=== PATIENT | male | born 1970 | race Caucasian/White ===

== ENCOUNTER 2021-03-12 05:46 | Day surgery (SDC) | payer OTHER ==
[2021-03-12] MEDS ORDERED: Nozin Nasal Sanitizer NASBOTH ONE (06:15)
[2021-03-12] MEDS ORDERED: Bupivacaine 0.5% 30 ML SDV ONE ×2 (06:51→07:16)
[2021-03-12] MEDS ORDERED: Lactated Ringers 1,000 ML IV SCH (07:00)
[2021-03-12] MEDS ORDERED: fentaNYL 100 MCG/2 ML SDV ONE ×2 (07:16→08:12)
[2021-03-12] MEDS ORDERED: Midazolam 1 MG/ML 2 ML SDV ONE (07:16)
[2021-03-12] MEDS ORDERED: Propofol 200 MG/20 ML SDV ONE ×3 (07:16→08:13)
[2021-03-12] MEDS ORDERED: Dexamethasone 4 MG/ML SDV ONE (07:17)
[2021-03-12] MEDS ORDERED: Ondansetron 4 MG/2 ML SDV ONE (07:17)
[2021-03-12] MEDS ORDERED: ceFAZolin 2 GM in Premix Bag 1 BAG IV ONE (07:30)
[2021-03-12] MEDS ORDERED: Lactated Ringers 1,000 ML ONE (09:23)
--- NOTE | 2021-03-31 04:32 | OR ---
DATE OF PROCEDURE: 03/12/2021 SURGEON: Naun Minor MD PREOPERATIVE DIAGNOSES: Recurrent anterior labral tear, possible superior labral tear. POSTOPERATIVE DIAGNOSES: 1. Recurrent anterior labral tear. 2. Posterior labral tear. 3. Synovitis. PROCEDURES: 1. Arthroscopy, left shoulder, with repair of anterior labrum. 2. Repair of posterior labrum. 3. Limited synovectomy. ANESTHESIA: Interscalene block with sedation. INDICATIONS: Irwin is a 51-year-old gentleman who sustained a work-related injury to his left shoulder resulting in large labral tear as well as traction injury with some nerve component. He underwent repair of anterior labrum and has undergone extensive therapy. He continues to have significant pain, disability, limited range of motion and strength. Followup MRI shows irregularity in 2 aspects of the labrum suggestive of incomplete healing of a previous repair versus new pathology. He now presents for arthroscopic evaluation and repair of labrum as necessary. Risks, benefits, potential complications of the procedure were discussed. DESCRIPTION OF PROCEDURE: After adequate anesthesia was obtained, the patient was placed in a lateral decubitus position and secured with a beanbag positioner. The left shoulder and arm were prepped and draped in a sterile fashion and 10 pounds of traction was placed through the traction unit. A standard posterior portal was established. The scope was introduced and glenohumeral joint was inspected. Immediately upon entering the joint, significant synovitis was present with inflammation over the majority of the capsule, particularly anterior. Some mild scarring was present in the anterior capsule, most notably in the area of the rotator cuff interval. Anterior portal was established, and using combination the shaver and the radiofrequency ablation wand, limited synovectomy was performed in the rotator cuff interval debriding the synovitis. Evaluation of the glenohumeral joint revealed some scuffing and grade 2 changes of the glenoid and humeral head, primarily in the glenoid. Some degenerative fraying of the edge of the labrum was noted anteriorly. Repair was noted to be solid superiorly with one loose stitch more inferiorly consistent with the MRI. Biceps tendon was intact. Subscapularis was intact, and the undersurface of the rotator cuff showed no abnormalities. Loose suture was removed with a combination of shaver and grasper. The edge of the glenoid was prepared using a shaver and a small round baudilio. One Mitek Gryphon anchor was placed adjacent to the previous anchor position. A curved suture grasper was used to bring 1 limb of each of the suture pairs around the labrum and small portion of the capsule. It was then tied down in standard arthroscopic technique with a knot away from the glenoid. This was probed and found to be quite stable. The remainder of repair was probed again and found to be stable. The biceps anchor itself on the superior aspect showed no evidence of peel back or instability. The scope was switched from the posterior portal to the anterior portal and examination of the posterior-superior labrum showed significant peel back with degenerative changes consistent with tear. An additional accessory posterior portal was established for a better angle for placement of an anchor for repair. The edge of the glenoid and posterior glenoid neck was debrided with a shaver and a small baudilio and a single Mitek Gryphon anchor was placed. A curved suture passer was used to bring both limbs of the suture around the glenoid and these were then tied in standard arthroscopic technique, securing the labrum onto the glenoid. This was evaluated with a probe and found to be stable. The scope was then withdrawn. The scope was placed in the subacromial space. Some very minor scarring in the subacromial space was noted, which was debrided with the radiofrequency ablation wand for better visualization. Bursal surface of the rotator cuff was completely intact with excellent vascularity and no evidence of tear or tendinopathy. The previous acromioplasty and distal clavicle resection were adequate with no evidence of impingement. The scope was then withdrawn and port sites were closed with 3-0 Monocryl, and Steri-Strips were applied. Sterile dressing was then placed. The patient tolerated procedure very well. There were no complications, taken from the operating room in stable condition. Naun Minor MD /[id number]
== END 2021-03-12 11:00 | disposition home or self-care (01) ==
LOC: JP.SDS 05:46
PROVIDERS: ATTEND Specialist
DX: S43.431A Superior glenoid labrum lesion of right shoulder, initial encounter (principal); S43.492A Other sprain of left shoulder joint, initial encounter; M65.812 Other synovitis and tenosynovitis, left shoulder; I12.9 Hypertensive chronic kidney disease with stage 1 through stage 4 chronic kidney disease, or unspecified chronic kidney disease; N18.2 Chronic kidney disease, stage 2 (mild); F17.220 Nicotine dependence, chewing tobacco, uncomplicated; Z98.890 Other specified postprocedural states
CPT/HCPCS: 36415; 80053; 85027; A9270-GY; C1713; J0690; J1100; J2250; J2405; J2704; J3010; J3490; J7120

== ENCOUNTER 2021-11-03 09:22 | Day surgery (SDC) | payer OTHER ==
[2021-11-03] MEDS ORDERED: Propofol 200 MG/20 ML SDV ONE (10:27)
[2021-11-03] MEDS ORDERED: fentaNYL 100 MCG/2 ML SDV ONE (10:27)
[2021-11-03] MEDS ORDERED: Midazolam 1 MG/ML 2 ML SDV ONE (10:27)
[2021-11-03] MEDS ORDERED: Bupivacaine 0.5% 30 ML SDV ONE (10:28)
[2021-11-03 10:32] LABS: CORONAVIRUS COVID-19 NAA POSITIVE (NEGATIVE)
[2021-11-03] MEDS ORDERED: Nozin Nasal Sanitizer NASBOTH ONE (10:40)
[2021-11-03] MEDS ORDERED: Lactated Ringers 1,000 ML IV SCH (10:40)
[2021-11-03] MEDS ORDERED: ceFAZolin 2 GM in Premix Bag 1 BAG IV ONE (10:40)
== END 2021-11-03 11:00 | disposition home or self-care (01) ==
LOC: JP.SDS 09:22
PROVIDERS: ATTEND Specialist
DX: M25.312 Other instability, left shoulder (principal); Z53.09 Procedure and treatment not carried out because of other contraindication; U07.1 COVID-19
CPT/HCPCS: 0241U; 36415; 80053; 85027; A9270; J2250; J2704; J3010; J3490; J7120

== ENCOUNTER 2021-12-15 07:48 | Day surgery (SDC) | payer OTHER ==
[~2021-12-15 07:48] MED LIST: Bupivacaine 0.5% 50 ML MDV ONE
[2021-12-15] MEDS ORDERED: Ondansetron 4 MG/2 ML SDV ONE (08:28)
[2021-12-15] MEDS ORDERED: Neostigmine Methylsulfate 1 MG/ML 5 ML Syringe ONE (08:28)
[2021-12-15] MEDS ORDERED: Rocuronium 50 MG/5 ML Vial ONE (08:28)
[2021-12-15] MEDS ORDERED: Propofol 200 MG/20 ML SDV ONE (08:28)
[2021-12-15] MEDS ORDERED: Glycopyrrolate 0.2 MG/ML 5 ML MDV ONE (08:28)
[2021-12-15] MEDS ORDERED: Succinylcholine 200 MG/10 ML MDV ONE (08:28)
[2021-12-15] MEDS ORDERED: Dexamethasone 4 MG/ML SDV ONE (08:28)
[2021-12-15] MEDS ORDERED: fentaNYL 250 MCG/5 ML SDV ONE (08:30)
[2021-12-15] MEDS ORDERED: Bupivacaine 0.5% 30 ML SDV ONE (08:32)
[2021-12-15 08:43] LABS: ESTIMATED GFR > 60 (>60)
[2021-12-15] MEDS ORDERED: Nozin Nasal Sanitizer NASBOTH ONE (09:30)
[2021-12-15] MEDS ORDERED: Lactated Ringers 1,000 ML IV SCH (09:45)
[2021-12-15] MEDS ORDERED: ceFAZolin 2 GM in Premix Bag 1 BAG IV ONE (10:00)
[2021-12-15] MEDS ORDERED: ePHEDrine 50 MG/ML SDV ONE (11:41)
[2021-12-15] MEDS ORDERED: Sodium Chloride 0.9% 10 ML ONE (11:41)
[2021-12-15] MEDS ORDERED: fentaNYL 100 MCG/2 ML SDV ONE (12:54)
[2021-12-15] MEDS ORDERED: Ketorolac 30 MG/ML SDV ONE (12:57)
[2021-12-15] MEDS ORDERED: Acetaminophen/oxyCODONE 325-5 MG Tab PO PRN (13:52)
== END 2021-12-15 15:30 | disposition home or self-care (01) ==
LOC: JP.SDS 07:48
PROVIDERS: ATTEND Specialist
DX: M25.312 Other instability, left shoulder (principal); F17.210 Nicotine dependence, cigarettes, uncomplicated; G47.30 Sleep apnea, unspecified; E66.9 Obesity, unspecified; Z79.899 Other long term (current) drug therapy
CPT/HCPCS: 23466; 36415; 80053; 85027; A9270; J0330; J0690; J1100; J1885; J2405; J2704; J3010; J3490; J7120; J2710